=== PATIENT | male | born 1980 | race Caucasian/White ===

== ENCOUNTER 2019-07-25 08:05 | Emergency (ER) | payer SELFPAY ==
[2019-07-25] VITALS (7 sets, daily range): BP systolic 113–141; BP diastolic 79–109; PULSE 69–102; RESP 13–22; TEMP 36.4; O2SAT 93–100; BMI 19.8
--- NOTE | 2019-07-25 08:23 | CTR_ITS ---
PROCEDURE INFORMATION: Exam: CT Abdomen And Pelvis With Contrast Exam date and time: 07/25/2019 8:31 AM Age: 38 years old Clinical indication: Abdominal pain; Localized; Left lower quadrant (llq); Additional info: N/v/d; ETOH abuse TECHNIQUE: Imaging protocol: Computed tomography of the abdomen and pelvis with intravenous contrast. Radiation optimization: All CT scans at this facility use at least one of these dose optimization techniques: automated exposure control; mA and/or kV adjustment per patient size (includes targeted exams where dose is matched to clinical indication); or iterative reconstruction. Contrast material: Omnipaque 300; Contrast volume: 95 ml; Contrast route: IV; COMPARISON: No relevant prior studies available. RADIATION DOSE METRICS: Total DLP: 310.93 mGy-cm FINDINGS: Liver: Mild diffuse hypoattenuation of the liver is present consistent with hepatic steatosis. Focal hypoattenuation of the hepatic left lobe medial and lateral segments adjacent to the falciform ligament fissure, likely representing more focally severe fatty infiltration. Gallbladder and bile ducts: Normal. No calcified stones. No ductal dilation. Pancreas: Normal. No ductal dilation. Spleen: Normal. No splenomegaly. Adrenals: Normal. No mass. Kidneys and ureters: Normal. No hydronephrosis. Stomach and bowel: Unremarkable. No obstruction. No mucosal thickening. Appendix: The vermiform appendix is normal. Intraperitoneal space: Unremarkable. No free air. No significant fluid collection. Vasculature: Unremarkable. No abdominal aortic aneurysm. Lymph nodes: No enlarged lymph nodes. Bladder: The urinary bladder is decompressed and difficult to assess. Reproductive: Unremarkable as visualized. Bones/joints: Anterior bridging bilateral sacroiliac joint marginal osteophytes. Soft tissues: Unremarkable. CT/CT abdomen pelvis w con* [id number] IMPRESSION: Fatty infiltration of the liver. Radiation Dose CTDIVOL = (mGy): DLP = 310.93 (mGy-cm)
--- NOTE | 2019-07-25 08:25 | ED_ITS ---
HPI - Nausea/Vomiting/Diarrhea General: Chief complaint: Nausea/Vomiting/Diarrhea Stated complaint: N/V/ABD PAIN Time Seen by Provider: 07/25/19 08:11 History of Present Illness: HPI Narrative: Patient states he has had nausea vomiting and diarrhea since yesterday. Patient denies any fever. He does not given history of food exposure that could have caused food poisoning. Upon further questioning, patient admits that he is an alcoholic and drinks 2 pints of alcohol per day. Patient states that he throws up every morning, however he does not usually have diarrhea and the vomiting is typically not as severe as it has been since yesterday. MD elicited complaint: nausea, vomiting, diarrhea and abdominal pain Pertinent past history: alcohol abuse Onset (ago): day(s) (1) Associated nausea: Yes Associated abdominal pain: Yes Location of pain: Diffuse Exacerbating factors: none Relieving factors: none Associated symtoms: Reports nausea Review of Systems GI: Reports: nausea PFS ED PFSH: Social History Smoking and tobacco status: current every day smoker Physical Exam Const: COMMON NORMALS: patient oriented x3 and alert GENERAL APPEARANCE: cooperative, well developed, in distress, disheveled, ill appearing and appears older than stated age HENMT: COMMON NORMALS: normocephalic and atraumatic HEAD & SCALP: normal to inspection, normocephalic and atraumatic Eye: GENERAL EYE: appearance normal, both eyes and all related structures Neck/C-Spine: COMMON NORMALS: full ROM, no lymphadenopathy and no meningeal signs GENERAL: Yes normal visual inspection CERVICAL SPINE: Yes cervical ROM normal and Yes normal cervical lordosis Chest: COMMONS NORMALS: normal inspection of the chest and normal palpation of entire chest wall Resp: COMMON NORMALS: normal respiratory effort, clear to auscultation bilaterally and percussion normal AUSCULTATION: clear to auscultation bilaterally PERCUSSION: percussion normal Cardio: COMMON NORMALS: regular rate, regular rhythm, S1 normal heart sound present and S2 normal heart sound present JUGULAR VENOUS DISTENTION: no JVD PALPATION: normal PMI RATE: regular rate RHYTHM: regular rhythm HEART SOUNDS: S1 normal heart sound present and S2 normal heart sound present GI: COMMON NORMALS: Soft to palpation and No hepatosplenomegaly present INSPECTION: Yes normal to inspection PALPATION: Yes Soft to palpation and Yes No hepatosplenomegaly present PERCUSSION: normal to percussion : COMMON NORMALS: Yes no CVA tenderness BLADDER/KIDNEY EXAM: Yes no CVA tenderness Back/Pelvis: COMMON NORMALS: no CVA tenderness, thoracic and lumbar spine normal to inspection and thoraco-lumbar ROM normal Extremity: COMMON NORMALS: normal to inspection, full ROM and capillary refill normal Neuro: COMMON NORMALS: patient oriented x3 SENSORIUM/ORIENTATION: Yes alert MENINGEAL SIGNS: Yes no meningeal signs Skin: COMMON NORMALS: no rashes or lesions noted, no wounds and turgor normal GENERAL SKIN EXAM: no rashes or lesions noted, elasticity normal and turgor normal LESIONS: no lesions RASHES: no rashes TRAUMA: no lacerations or abrasions HAIR: normal NAILS: normal Course Vital Signs: Vital signs: Vital Signs Temperature 97.5 F L 07/25/19 08:09 Pulse Rate 92 07/25/19 09:29 Respiratory Rate 16 07/25/19 09:29 Blood Pressure 141/104 07/25/19 09:29 Pulse Oximetry 96 07/25/19 09:29 MDM - Nausea/Vomiting/Diarrhea Lab Data: Labs: Lab Results 07/25/19 07/25/19 07/25/19 Range/Units 08:15 08:15 08:15 WBC 10.4 H (4.0-10.0) 10^3/ uL RBC 5.39 H (4.1-5.3) 10^6/u L Hgb 17.6 H (11.7-16.6) g/dL Hct 50.7 (42.0-52.0) % MCV 94.1 H (80-94) fL MCH 32.7 (28.0-34.0) pg MCHC 34.7 (30.0-36.0) g/dL RDW 13.0 (12.1-15.1) % Plt Count 291 (130-400) 10^3/c mm MPV 9.8 (7.4-10.4) fL Neut % (Auto) 63.3 % Lymph % (Auto) 21.1 % [place] % (Auto) 14.6 % Eos % (Auto) 0.2 % Baso % (Auto) 0.5 % Neut # (Auto) 6.6 (1.8-7.7) 10^3/u L Lymph # (Auto) 2.2 (0.8-4.8) 10^3/u L [place] # (Auto) 1.5 H (0.2-0.9) 10^3/u L Eos # (Auto) 0.0 (0.0-0.8) 10^3/u L Baso # (Auto) 0.1 (0.0-0.1) 10^3/u L Nucleated RBC % (a uto) 0 % Nucleated RBCs # 0.0 /100WBC PT 11.90 (10.5-13.3) SECO NDS INR 0.85 (0.8-1.2) APTT 27.1 (23.9-36.7) SECO NDS Sodium 138 (136-145) mmol/L Potassium 3.9 (3.5-5.1) mmol/L Chloride 88 L (98-107) mmol/L Carbon Dioxide 25 (22-29) mmol/L Anion Gap 28.9 H (5-19) BUN 15 (6-20) mg/dL Creatinine 0.9 (0.7-1.2) mg/dL GFR Calculation 93.9 (90-130) mL/min Glucose 137 H (65-115) mg/dL Calculated Osmolal ity 284 L (285-295) mOsm/k g Lactate (0.5-2.2) mmol/L Calcium 11.3 H (8.5-10.5) mg/dL Phosphorus 3.4 (2.5-4.5) mg/dL Magnesium 2.1 (1.7-2.3) mg/dL Total Bilirubin 1.5 H (0.15-1.2) mg/dL AST 43 H (0-40) U/L ALT 41 (0-41) U/L Alkaline Phosphata se 84 (40-130) IU/L Total Protein 9.0 H (6.6-8.7) g/dL Albumin 5.8 H (3.5-5.2) g/dL Globulin 3.2 (1.3-4.6) g/dL Lipase 23 (13-60) U/L TSH 1.34 (0.27-4.20) uIU/ mL Salicylates < 0.3 L (3-10) mg/dL Acetaminophen < 5.0 L (10-30) ug/mL Ethyl Alcohol < 10 (0-10) mg/dL 07/25/19 Range/Units 08:15 WBC (4.0-10.0) 10^3/ uL RBC (4.1-5.3) 10^6/u L Hgb (11.7-16.6) g/dL Hct (42.0-52.0) % MCV (80-94) fL MCH (28.0-34.0) pg MCHC (30.0-36.0) g/dL RDW (12.1-15.1) % Plt Count (130-400) 10^3/c mm MPV (7.4-10.4) fL Neut % (Auto) % Lymph % (Auto) % [place] % (Auto) % Eos % (Auto) % Baso % (Auto) % Neut # (Auto) (1.8-7.7) 10^3/u L Lymph # (Auto) (0.8-4.8) 10^3/u L [place] # (Auto) (0.2-0.9) 10^3/u L Eos # (Auto) (0.0-0.8) 10^3/u L Baso # (Auto) (0.0-0.1) 10^3/u L Nucleated RBC % (a uto) % Nucleated RBCs # /100WBC PT (10.5-13.3) SECO NDS INR (0.8-1.2) APTT (23.9-36.7) SECO NDS Sodium (136-145) mmol/L Potassium (3.5-5.1) mmol/L Chloride (98-107) mmol/L Carbon Dioxide (22-29) mmol/L Anion Gap (5-19) BUN (6-20) mg/dL Creatinine (0.7-1.2) mg/dL GFR Calculation (90-130) mL/min Glucose (65-115) mg/dL Calculated Osmolal ity (285-295) mOsm/k g Lactate 2.2 (0.5-2.2) mmol/L Calcium (8.5-10.5) mg/dL Phosphorus (2.5-4.5) mg/dL Magnesium (1.7-2.3) mg/dL Total Bilirubin (0.15-1.2) mg/dL AST (0-40) U/L ALT (0-41) U/L Alkaline Phosphata se (40-130) IU/L Total Protein (6.6-8.7) g/dL Albumin (3.5-5.2) g/dL Globulin (1.3-4.6) g/dL Lipase (13-60) U/L TSH (0.27-4.20) uIU/ mL Salicylates (3-10) mg/dL Acetaminophen (10-30) ug/mL Ethyl Alcohol (0-10) mg/dL Discharge Plan Discharge Patient Disposition: Home, Self-Care Clinical Impression: Gastroenteritis, Alcohol abuse Chronic alcoholic gastritis Qualifiers: Gastritis bleeding: without bleeding Qualified Code(s): K29.20 - Alcoholic gastritis without bleeding Condition: Stable Prescriptions: New ondansetron 4 mg tablet,disintegrating 4 mg PO Q6H PRN (Reason: nausea and vomiting) Qty: 10 RF: 1 dicyclomine 10 mg capsule 10 mg PO QID Qty: 20 RF: 0 Discharge Orders: Discharge Order (Routine); Ordered 07/25/19 Ordered By: Nabil Vaughn Coding Level of Care Code ED Linotypist for Chg Fwd Exam Comprehensive
[2019-07-25] MEDS: ondansetron 2 mg/ML SDV 2 mL 4 MG IVP (08:28)
--- NOTE | 2019-07-25 08:33 | PC.NURSE ---
At patients bedside to administer zofran and obtain second blood culture. Zofran administered. Second blood culture obtained via venipuncture of the right AC. Patient also reports the physician stated he was able to have ice chips. Ice chips obtained and given to the patient. Patient has no other needs at this time. Will continue to monitor patient.
[2019-07-25 08:40] LABS: Basophils # 0.1 10^3/uL (0.0-0.1); Basophils % 0.5 %; Eosinophils % 0.2 %; Hematocrit 50.7 % (42.0-52.0); Hemoglobin 17.6 g/dL (11.7-16.6); Lymphocytes # 2.2 10^3/uL (0.8-4.8); Lymphocytes % 21.1 %; Mean Corpuscular HGB Conc 34.7 g/dL (30.0-36.0); Mean Corpuscular Hemoglobin 32.7 pg (28.0-34.0); Mean Corpuscular Volume 94.1 fL (80-94); Mean Platelet Volume 9.8 fL (7.4-10.4); Monocytes # 1.5 10^3/uL (0.2-0.9); Monocytes % 14.6 %; Neutrophils # 6.6 10^3/uL (1.8-7.7); Neutrophils % 63.3 %; Nucleated Red Blood Cells % 0 %; Platelet Count 291 10^3/cmm (130-400); Red Blood Count 5.39 10^6/uL (4.1-5.3); White Blood Count 10.4 10^3/uL (4.0-10.0)
[2019-07-25 08:44] LABS: INR 0.85 (0.8-1.2)
[2019-07-25 08:45] LABS: Partial Thromboplastin Time 27.1 SECONDS (23.9-36.7)
[2019-07-25] MEDS: folic acid 1 MG, multivitamin inj 10 ML, thiamine 100 MG in sodium chloride 0.9% 1,000 ML 252.8 MG IV (08:50)
[2019-07-25 08:54] LABS: Lactate (Lactic Acid level) 2.2 mmol/L (0.5-2.2)
[2019-07-25] MEDS: sodium chloride 0.9% 1,000 ML 999 ML IV (08:55)
[2019-07-25 09:00] LABS: Alanine Aminotransferase 41 U/L (0-41); Albumin Level 5.8 g/dL (3.5-5.2); Alkaline Phosphatase 84 IU/L (40-130); Anion Gap 28.9 (5-19); Aspartate Amino Transferase 43 U/L (0-40); Blood Urea Nitrogen 15 mg/dL (6-20); Calcium 11.3 mg/dL (8.5-10.5); Carbon Dioxide 25 mmol/L (22-29); Chloride 88 mmol/L (98-107); Globulin 3.2 g/dL (1.3-4.6); Glomerular Filtration Rate 93.9 mL/min (90-130); Glucose 137 mg/dL (65-115); Lipase 23 U/L (13-60); Magnesium 2.1 mg/dL (1.7-2.3); Osmolality Calculated 284 mOsm/kg (285-295); Phosphorus 3.4 mg/dL (2.5-4.5); Potassium 3.9 mmol/L (3.5-5.1); Sodium 138 mmol/L (136-145); Thyroid Stimulating Hormone 1.34 uIU/mL (0.27-4.20); Total Bilirubin 1.5 mg/dL (0.15-1.2)
--- NOTE | 2019-07-25 09:05 | PC.NURSE ---
Patient with EMS heading to [facility] for CT. Fluids stopped at this time.
[2019-07-25] MEDS: iohexol 300 mg/mL 100 mL Btl IV (09:23)
--- NOTE | 2019-07-25 09:25 | PC.NURSE ---
Patient returning from the [facility] from CT.
[2019-07-25 09:37] LABS: Acetaminophen < 5.0 ug/mL (10-30); Alcohol Level < 10 mg/dL (0-10); Salicylate < 0.3 mg/dL (3-10)
[2019-07-25 11:20] LABS: Amphetamines Screen Urine Negative (Negative); Barbiturates Screen Urine Negative (Negative); Benzodiazepines Screen Urine Negative (Negative); Cocaine Screen Urine Negative (Negative); Opiate Screen Urine Negative (Negative); PCP Screen Urine Negative (Negative); THC Screen Urine Positive (Negative)
[2019-07-25 11:27] LABS: Blood Urine Neg (Negative); Glucose Urine UA Norm (Normal); Ketones Urine 3+ (Negative); Nitrate Urine Negative (Negative); Protein Urine 1+ (Negative); Urine Appearance Clear (CLEAR); Urine Color Yellow (Yellow); pH Urine 7 (5-7)
[2019-07-25 11:28] LABS: Add Urine Culture? No; Add Urine Microscopic? YES; Bacteria Urine TRACE; Bilirubin Urine 1+ (NEGATIVE); Leukocyte Esterase Urine Negative (Negative); Mucus Urine 1+; Urobilinogen Urine 4 mg/dL (Negative); WBC Urine 0-4 /hpf (0-5)
== END 2019-07-25 10:26 | disposition home or self-care (01) ==
PROVIDERS: Emergency Provider Family Medicine
DX: K29.20 Alcoholic gastritis without bleeding (principal); F10.10 Alcohol abuse, uncomplicated; K52.9 Noninfective gastroenteritis and colitis, unspecified; F17.210 Nicotine dependence, cigarettes, uncomplicated
CPT/HCPCS: 12345; 74177; 80053; 80306; 80307; 81001; 83605; 83690; 83735; 84100; 84443; 85025; 85610; 85730; 87040; 96360; 96365; 96366; 96375; 99284; J2405; J3411; J3490; J7030; Q9967

== ENCOUNTER 2019-08-25 14:00 | Inpatient (IN) | payer SELFPAY ==
[2019-08-25] VITALS (49 sets, daily range): BP systolic 99–157; BP diastolic 68–101; PULSE 86–130; RESP 13–26; TEMP 36.9–37.2; O2SAT 88–97
--- NOTE | 2019-08-25 14:11 | ED_ITS ---
HPI - Psych General: Chief Complaint: Psychiatric Symptoms Stated Complaint: stated needs help Time Seen by Provider: 08/25/19 14:07 Source: patient History of Present Illness: HPI Narrative: 38-year-old male brought in at his request by his mother who lives next door to him because he wants help to get sober. He ultimately wants to go to rehab. He states he drinks a gallon of vodka a day and cannot tell me the last time he did not drink. Last alcoholic drink was just prior to arrival. He states he has been depressed for the last 10 days since his left him he was sitting [place] the railroad [place] earlier today because he feels despondent and hopeless. Did not take any recreational drugs or overdose on anything. He tells me I know I am an alcoholic and I need your help Associated symptoms: Reports depression and suicidal ideation Review of Systems General: Reports: 10 or more systems reviewed and unremarkable except in HPI and below Const: Denies: fever(s) or chills Eyes: Denies: change in vision ENMT: Denies: throat pain Card: Denies: chest pain Resp: Denies: dyspnea GI: Denies: abdominal pain, nausea, vomiting or change in bowel habits : Denies: difficulty urinating Musc: Denies: muscle weakness Skin/Breast: Denies: rash Neuro: Denies: headache(s) Psych: Reports: depression, hopelessness and suicidal ideation Endo: Denies: polyuria Stanley/Lymph: Denies: easy bruising or easy bleeding All/Imm: Denies: urticaria PFSH ED PFSH: Medical History (Updated 08/25/19 @ 19:56 by Pippa Romero MD) Alcohol abuse Cigarette smoker two packs a day or less Cyst of eyelid -s/p excision in childhood Tetrahydrocannabinol (THC) use disorder, mild, abuse Family History Father Cancer prostate Alcohol abuse Social History (Updated 08/25/19 @ 19:10 by Dyan Barnett MD) Smoking and tobacco status: current every day smoker cigarettes Packs smoked per day: 2 Years cigarettes smoked: 25 Alcohol intake: current Alcohol intake frequency: 3 or more drinks per day Alcohol type: hard liquor Alcohol use comment: heavy vodka use, 1 gallon/day Desire information about alcohol rehabilitation?: Yes Counseling given: Yes Type of substance drug use counseling provided: provider counseling Household members: spouse Marital status: Physical Exam Const: COMMON NORMALS: patient oriented x3, alert and well nourished OTHER: smells of etoh HENMT: COMMON NORMALS: normocephalic and Normal external nose present HEAD & SCALP: normocephalic NOSE: Normal external nose present MOUTH: no trismus Eye: COMMON NORMALS: EOMs intact bilaterally and conjunctivae normal CONJUNCTIVA: Yes conjunctivae normal Neck/C-Spine: COMMON NORMALS: full ROM, no lymphadenopathy and supple CERVICAL SPINE: Yes cervical ROM normal Lymph: LYMPHATIC: no lymphadenopathy noted Resp: COMMON NORMALS: normal respiratory effort, No retractions, No use of accessory muscles and clear to auscultation bilaterally EFFORT & INSPECTION: Yes able to speak in complete sentences AUSCULTATION: clear to auscultation bilaterally Cardio: COMMON NORMALS: regular rate and regular rhythm RATE: regular rate RHYTHM: regular rhythm GI: COMMON NORMALS: Normal to inspection, nondistended, normoactive bowel sounds present, Soft to palpation, non-tender and no masses INSPECTION: Yes normal to inspection AUSCULTATION: Yes normoactive bowel sounds PALPATION: Yes Soft to palpation, No Guarding due to palpation present (GI) and No Rigid due to palpation Back/Pelvis: OTHER: Normal range of motion Extremity: GENERAL: Yes normal exam except as noted Neuro: COMMON NORMALS: patient oriented x3 and CN's II-XII intact bilaterally SENSORIUM/ORIENTATION: Yes alert SPEECH: speech normal Psych: COMMON NORMALS: mental status grossly normal MOOD & AFFECT: Yes tearful and Yes expansive affect ATTENTION/CONCENTRATION: Yes concentration grossly impaired INSIGHT: Limited insight present (Psych) Skin: COMMON NORMALS: no rashes or lesions noted GENERAL SKIN EXAM: no rashes or lesions noted MDM - Psych MDM Narrative: Medical decision making narrative: 38 yo male with chronic alcohol abuse here wanting help to stop drinking and ultimately wants to go to rehab. drinks a gallon of vodka daily. Has never had DT's. depressed and hopeless since left him 10 days ago. d/w Dr Barnett will admit to ICU. Given IVF, ativan, MVI, thiamine and nicotine patch in ER no problems while in ED. * Lab Data: Attestation: I reviewed the patient's lab results. Labs: Lab Results 08/25/19 08/25/19 08/25/19 Range/Units 14:23 14:23 14:26 WBC 10.5 H (4.0-10.0) 10^3/ uL RBC 5.08 (4.1-5.3) 10^6/u L Hgb 16.6 (11.7-16.6) g/dL Hct 47.6 (42.0-52.0) % MCV 93.7 (80-94) fL MCH 32.7 (28.0-34.0) pg MCHC 34.9 (30.0-36.0) g/dL RDW 12.2 (12.1-15.1) % Plt Count 214 (130-400) 10^3/c mm MPV 9.8 (7.4-10.4) fL Neut % (Auto) 56.5 % Lymph % (Auto) 30.9 % [place] % (Auto) 10.1 % Eos % (Auto) 1.4 % Baso % (Auto) 0.9 % Neut # (Auto) 5.92 (1.8-7.7) 10^3/u L Lymph # (Auto) 3.2 (0.8-4.8) 10^3/u L [place] # (Auto) 1.1 H (0.2-0.9) 10^3/u L Eos # (Auto) 0.2 (0.0-0.8) 10^3/u L Baso # (Auto) 0.1 (0.0-0.1) 10^3/u L Nucleated RBC % (a uto) 0 % Nucleated RBCs # 0.0 /100WBC Sodium (136-145) mmol/L Potassium (3.5-5.1) mmol/L Chloride (98-107) mmol/L Carbon Dioxide (22-29) mmol/L Anion Gap (5-19) BUN (6-20) mg/dL Creatinine (0.7-1.2) mg/dL GFR Calculation (90-130) mL/min Glucose (65-115) mg/dL Calculated Osmolal ity (285-295) mOsm/k g Calcium (8.5-10.5) mg/dL Total Bilirubin (0.15-1.2) mg/dL AST (0-40) U/L ALT (0-41) U/L Alkaline Phosphata se (40-130) IU/L Total Protein (6.6-8.7) g/dL Albumin (3.5-5.2) g/dL Globulin (1.3-4.6) g/dL TSH (0.27-4.20) uIU/ mL Urine Color Yellow (Yellow) Urine Appearance Clear (CLEAR) Urine pH 6 (5-7) Ur Specific Gravit y 1.010 (1.005-1.030) Urine Protein Trace (Negative) Urine Glucose (UA) Norm (Normal) Urine Ketones 1+ H (Negative) Urine Blood Neg (Negative) Urine Nitrate Negative (Negative) Urine Bilirubin Neg (NEGATIVE) Urine Urobilinogen 1 H (Negative) mg/dL Ur Leukocyte [place] Negative (Negative) Urine RBC 0-4 H (0-2) /hpf Urine WBC None (0-5) /hpf Ur Squamous Epith Cells None (0-5) Ur Transition Epit h Cell None /hpf Ur Renal Epithelia l Cell N /hpf Amorphous Sediment Not Reportable Urine Bacteria Trace (NONE) Hyaline Casts 0-4 H Urine Mucus 4+ Salicylates (3-10) mg/dL Urine Opiates Scre en Negative (Negative) ng/mL Acetaminophen (10-30) ug/mL Ur Barbiturates Sc reen Negative (Negative) ng/mL Ur Phencyclidine S crn Negative (Negative) ng/mL Ur Amphetamines Sc reen Negative (Negative) ng/mL U Benzodiazepines Scrn Negative (Negative) ng/mL Urine Cocaine Scre en Negative (Negative) ng/mL U Marijuana (THC) Screen Positive H (Negative) ng/mL Ethyl Alcohol (0-10) mg/dL 08/25/19 Range/Units 14:26 WBC (4.0-10.0) 10^3/ uL RBC (4.1-5.3) 10^6/u L Hgb (11.7-16.6) g/dL Hct (42.0-52.0) % MCV (80-94) fL MCH (28.0-34.0) pg MCHC (30.0-36.0) g/dL RDW (12.1-15.1) % Plt Count (130-400) 10^3/c mm MPV (7.4-10.4) fL Neut % (Auto) % Lymph % (Auto) % [place] % (Auto) % Eos % (Auto) % Baso % (Auto) % Neut # (Auto) (1.8-7.7) 10^3/u L Lymph # (Auto) (0.8-4.8) 10^3/u L [place] # (Auto) (0.2-0.9) 10^3/u L Eos # (Auto) (0.0-0.8) 10^3/u L Baso # (Auto) (0.0-0.1) 10^3/u L Nucleated RBC % (a uto) % Nucleated RBCs # /100WBC Sodium 134 L (136-145) mmol/L Potassium 3.7 (3.5-5.1) mmol/L Chloride 95 L (98-107) mmol/L Carbon Dioxide 21 L (22-29) mmol/L Anion Gap 21.7 H (5-19) BUN 7 (6-20) mg/dL Creatinine 0.7 (0.7-1.2) mg/dL GFR Calculation 125.5 (90-130) mL/min Glucose 113 (65-115) mg/dL Calculated Osmolal ity 275 L (285-295) mOsm/k g Calcium 9.5 (8.5-10.5) mg/dL Total Bilirubin 0.5 (0.15-1.2) mg/dL AST 240 H (0-40) U/L ALT 267 H (0-41) U/L Alkaline Phosphata se 76 (40-130) IU/L Total Protein 8.2 (6.6-8.7) g/dL Albumin 5.5 H (3.5-5.2) g/dL Globulin 2.7 (1.3-4.6) g/dL TSH 0.21 L (0.27-4.20) uIU/ mL Urine Color (Yellow) Urine Appearance (CLEAR) Urine pH (5-7) Ur Specific Gravit y (1.005-1.030) Urine Protein (Negative) Urine Glucose (UA) (Normal) Urine Ketones (Negative) Urine Blood (Negative) Urine Nitrate (Negative) Urine Bilirubin (NEGATIVE) Urine Urobilinogen (Negative) mg/dL Ur Leukocyte [place] (Negative) Urine RBC (0-2) /hpf Urine WBC (0-5) /hpf Ur Squamous Epith Cells (0-5) Ur Transition Epit h Cell /hpf Ur Renal Epithelia l Cell /hpf Amorphous Sediment Urine Bacteria (NONE) Hyaline Casts Urine Mucus Salicylates < 0.3 L (3-10) mg/dL Urine Opiates Scre en (Negative) ng/mL Acetaminophen < 5.0 L (10-30) ug/mL Ur Barbiturates Sc reen (Negative) ng/mL Ur Phencyclidine S crn (Negative) ng/mL Ur Amphetamines Sc reen (Negative) ng/mL U Benzodiazepines Scrn (Negative) ng/mL Urine Cocaine Scre en (Negative) ng/mL U Marijuana (THC) Screen (Negative) ng/mL Ethyl Alcohol 384 H* (0-10) mg/dL Imaging Data^: CT Head: Radiologist's impression: [address] [facility] [address] CT Scan Report Signed Patient: Luis Andrew #: [id number] : 1980Acct#:[id number] Age/Sex: 38 / MADM Date: 08/25/19 Loc: ERRoom/Bed: Attending Dr: Ordering Provider/Ordering MD: Pippa Romero MD Date of Service: 08/25/19 Procedure(s): CT head wo con* [id number] Accession Number(s): [id number] Report Number: [id number] PROCEDURE INFORMATION: Exam: CT Head Without Contrast Exam date and time: 08/25/2019 3:48 PM Age: 38 years old Clinical indication: Injury or trauma; Fall; Additional info: Fall, ETOH TECHNIQUE: Imaging protocol: Computed tomography of the head without contrast. Radiation optimization: All CT scans at this facility use at least one of these dose optimization techniques: automated exposure control; mA and/or kV adjustment per patient size (includes targeted exams where dose is matched to clinical indication); or iterative reconstruction. COMPARISON: No relevant prior studies available. RADIATION DOSE METRICS: Total DLP (mGy-cm): 838.69 FINDINGS: Brain: There is an old infarct in the left frontal white matter. No evidence of acute infarct. No hemorrhage or extra-axial collection. No mass. Ventricles: There is no hydrocephalus. Bones/joints: Unremarkable. No acute fracture. Sinuses: Visualized sinuses are unremarkable. No fluid levels. Mastoid air cells: Visualized mastoid air cells are well aerated. Soft tissues: Unremarkable. CT/CT head wo con* [id number] IMPRESSION: 1. 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 2. No acute intracranial injury or lesion. Radiation Dose CTDIVOL = (mGy): DLP = 838.69 (mGy-cm) Dictated By:Ham Puga MD Discharge Plan Discharge Patient Disposition: Admitted As Inpatient Admit Provider: Dyan Barnett Clinical Impression: Alcohol abuse, Suicidal ideation Condition: Stable Interventions: ED Discharge Assessment Last Done: 08/25/19 19:12 ED Charges Last Done: 08/25/19 19:13 Coding Level of Care Code ED Unemployment Insurance Hearing Officer for Chg Fwd Exam Comprehensive
[2019-08-25 14:37] LABS: Basophils # 0.1 10^3/uL (0.0-0.1); Basophils % 0.9 %; Eosinophils # 0.2 10^3/uL (0.0-0.8); Eosinophils % 1.4 %; Hematocrit 47.6 % (42.0-52.0); Hemoglobin 16.6 g/dL (11.7-16.6); Lymphocytes # 3.2 10^3/uL (0.8-4.8); Lymphocytes % 30.9 %; Mean Corpuscular HGB Conc 34.9 g/dL (30.0-36.0); Mean Corpuscular Hemoglobin 32.7 pg (28.0-34.0); Mean Corpuscular Volume 93.7 fL (80-94); Mean Platelet Volume 9.8 fL (7.4-10.4); Monocytes # 1.1 10^3/uL (0.2-0.9); Monocytes % 10.1 %; Neutrophils # 5.92 10^3/uL (1.8-7.7); Neutrophils % 56.5 %; Nucleated Red Blood Cells % 0 %; Platelet Count 214 10^3/cmm (130-400); Red Blood Count 5.08 10^6/uL (4.1-5.3); Red Cell Distribution Width 12.2 % (12.1-15.1); White Blood Count 10.5 10^3/uL (4.0-10.0)
[2019-08-25 15:01] LABS: Alanine Aminotransferase 267 U/L (0-41); Albumin Level 5.5 g/dL (3.5-5.2); Alkaline Phosphatase 76 IU/L (40-130); Anion Gap 21.7 (5-19); Aspartate Amino Transferase 240 U/L (0-40); Blood Urea Nitrogen 7 mg/dL (6-20); Calcium 9.5 mg/dL (8.5-10.5); Carbon Dioxide 21 mmol/L (22-29); Chloride 95 mmol/L (98-107); Globulin 2.7 g/dL (1.3-4.6); Glomerular Filtration Rate 125.5 mL/min (90-130); Glucose 113 mg/dL (65-115); Osmolality Calculated 275 mOsm/kg (285-295); Potassium 3.7 mmol/L (3.5-5.1); Sodium 134 mmol/L (136-145); Thyroid Stimulating Hormone 0.21 uIU/mL (0.27-4.20); Total Bilirubin 0.5 mg/dL (0.15-1.2); Total Protein 8.2 g/dL (6.6-8.7)
[2019-08-25 15:04] LABS: Acetaminophen < 5.0 ug/mL (10-30); Salicylate < 0.3 mg/dL (3-10)
[2019-08-25 15:05] LABS: Alcohol Level 384 mg/dL (0-10)
[2019-08-25] MEDS: LORazepam 1 mg Tablet PO (15:18)
[2019-08-25] MEDS: sodium chloride 0.9% 1,000 ML 999 ML IV (15:18)
[2019-08-25] MEDS: multivitamin therapeutic Tablet 1 TAB PO (15:18)
[2019-08-25 15:19] LABS: Protein Urine Trace (Negative); Urine Appearance Clear (CLEAR); Urine Color Yellow (Yellow); pH Urine 6 (5-7)
[2019-08-25 15:20] LABS: Add Urine Microscopic? YES; Bilirubin Urine Neg (NEGATIVE); Blood Urine Neg (Negative); Glucose Urine UA Norm (Normal); Ketones Urine 1+ (Negative); Leukocyte Esterase Urine Negative (Negative); Nitrate Urine Negative (Negative); Urobilinogen Urine 1 mg/dL (Negative)
[2019-08-25 15:22] LABS: Add Urine Culture? No; Bacteria Urine TRACE; Hyaline Casts Urine 0-4; Mucus Urine 4+; RBC Urine 0-4 /hpf (0-2); Renal Epithelial Cells Urine N /hpf
[2019-08-25] MEDS: nicotine 21 mg Patch 1 PATCH TRANSDERMA (15:22)
--- NOTE | 2019-08-25 15:39 | CTR_ITS ---
PROCEDURE INFORMATION: Exam: CT Head Without Contrast Exam date and time: 08/25/2019 3:48 PM Age: 38 years old Clinical indication: Injury or trauma; Fall; Additional info: Fall, ETOH TECHNIQUE: Imaging protocol: Computed tomography of the head without contrast. Radiation optimization: All CT scans at this facility use at least one of these dose optimization techniques: automated exposure control; mA and/or kV adjustment per patient size (includes targeted exams where dose is matched to clinical indication); or iterative reconstruction. COMPARISON: No relevant prior studies available. RADIATION DOSE METRICS: Total DLP (mGy-cm): 838.69 FINDINGS: Brain: There is an old infarct in the left frontal white matter. No evidence of acute infarct. No hemorrhage or extra-axial collection. No mass. Ventricles: There is no hydrocephalus. Bones/joints: Unremarkable. No acute fracture. Sinuses: Visualized sinuses are unremarkable. No fluid levels. Mastoid air cells: Visualized mastoid air cells are well aerated. Soft tissues: Unremarkable. CT/CT head wo con* [id number] IMPRESSION: 1. 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 2. No acute intracranial injury or lesion. Radiation Dose CTDIVOL = (mGy): DLP = 838.69 (mGy-cm)
[2019-08-25 15:49] LABS: Amphetamines Screen Urine Negative (Negative); Barbiturates Screen Urine Negative (Negative); Benzodiazepines Screen Urine Negative (Negative); Cocaine Screen Urine Negative (Negative); Opiate Screen Urine Negative (Negative); PCP Screen Urine Negative (Negative); THC Screen Urine Positive (Negative)
[2019-08-25] MEDS: LORazepam 2 mg/mL INJ 1 mL 1 MG IVP (16:47)
--- NOTE | 2019-08-25 17:39 | PC.NURSE ---
Called and informed pt mother of his room and his condition. Informed pt that his mother was informed
--- NOTE | 2019-08-25 17:52 | PC.NURSE ---
Has given 2 sandwiches along with apple sauce
--- NOTE | 2019-08-25 19:00 | P.HP_ITS ---
Providers/Chief Complaint Admitting Physician: Dyan Barnett MD Primary Care Provider: None Chief Complaint: stated needs help History of Present Illness Luis Andrew is a 38 year old male with PMHx of EtOH abuse, THC use, Chronic smoker; presents from home for assistance with detoxing from alcohol. He admits to drinking a gallon of vodka a day and is acutely intoxicated during my assessment in the ER. He has been quite emotional, stressed and anxious as he has not been able to being in contact with his for about 7 to 10 days and has been trying to drink himself to due to the stress. He reports poor sleep, often having vivid nightmares about his and his stepfather who is . He has had a long history of alcohol abuse, admits to intermittent THC use as well but denies other illicit drug use. He and his have been living in a camper but he has not had any contact with her recently and is unsure why he cannot get a hold of her. He has reported her disappearance to the police but her whereabouts remain unknown. He smokes 2 packs/day. He reported suicidal ideation on initial assessment in the ER but is currently denying this at this time. Sitter is present at bedside. Work-up in the ER indicates some leukocytosis with a white count of 10.5, hemoglobin of 16.6, sodium of 134, normal renal function, blood sugar of 113, AST of 240, ALT of 267, alcohol level of 384, urine drug screen positive for THC. While attempting to reposition on the stretcher he felt dizzy and ended up falling face forward after which she had a CT head done which is unremarkable. He has received 2 doses of Ativan, IV fluid hydration, thiamine and multivitamins and has a nicotine patch in place. He is very high risk for withdrawal given his acute in toxication, daily alcohol use and alcohol level of 384 so will require close monitoring in ICU setting. We will continue to need one-on-one monitoring due to suicide risk. Vital signs so far have been stable. Review of Systems Const: Reports: change in appetite (decreased appetite), fatigue and malaise; Denies: fever(s) or chills Eyes: Denies: change in vision ENMT: Reports: dry mouth Card: Denies: chest pain, swelling of feet/ankles or lightheadedness Resp: Denies: dyspnea, productive cough or non-productive cough GI: Denies: abdominal pain, nausea, vomiting, hematemesis or hematochezia : Reports: urinary frequency; Denies: dysuria or hematuria Musc: Denies: back pain Skin/Breast: Denies: rash Neuro: Reports: weakness in extremities; Denies: numbness in extremities Psych: Denies: anxiety Medications/Allergies Home Medications Medication Instructions Recorded Confirmed Last Taken Type ondansetron 4 mg PO Q6H PRN #10 tab 07/25/19 08/25/19 Unknown Rx Allergies Allergy/AdvReac Type Severity Reaction Status Date / Time No Known Allergies Allergy Verified 07/25/19 08:09 PFSH Acute PFSH: Medical History Alcohol abuse Cyst of eyelid -s/p excision in childhood Family History Father Cancer prostate Alcohol abuse Social History (Updated 08/25/19 @ 19:10 by Dyan Barnett MD) Smoking and tobacco status: current every day smoker cigarettes Packs smoked per day: 2 Years cigarettes smoked: 25 Alcohol intake: current Alcohol intake frequency: 3 or more drinks per day Alcohol type: hard liquor Alcohol use comment: heavy vodka use, 1 gallon/day Desire information about alcohol rehabilitation?: Yes Counseling given: Yes Type of substance drug use counseling provided: provider counseling Household members: spouse Marital status: Vitals/I&O/Wt Last Vital Signs Temp 98.6 F 08/25/19 14:01 Pulse 101 H 08/25/19 16:00 Resp 18 08/25/19 16:00 BP 110/68 08/25/19 16:00 Pulse Ox 97 08/25/19 16:00 Weight last 48 hrs Weight 68.039 kg Physical Exam Const: COMMON NORMALS: no acute distress, patient oriented x3 and alert GENERAL APPEARANCE: cooperative, comfortable and odor of alcohol detected ORIENTATION/CONSCIOUSNESS: Yes awake HENMT: COMMON NORMALS: normocephalic, atraumatic, hearing grossly normal bilaterally and moist oral mucous membranes HEAD & SCALP: normocephalic and atraumatic MOUTH: moist mucous membranes abnormal Details: parched and malodorous breath Eye: COMMON NORMALS: Equal, round and reactive pupils present, EOMs intact bilaterally and conjunctivae normal CONJUNCTIVA: Yes conjunctivae normal PUPIL: Yes Equal, round and reactive pupils present Neck/C-Spine: COMMON NORMALS: full ROM GENERAL: Yes normal visual inspection and Yes trachea midline Resp: COMMON NORMALS: normal respiratory effort, No retractions, No use of accessory muscles and clear to auscultation bilaterally EFFORT & INSPECTION: Yes able to speak in complete sentences, Yes symmetric chest movement and No tac hypneic AUSCULTATION: clear to auscultation bilaterally Cardio: COMMON NORMALS: regular rate, regular rhythm, S1 normal heart sound present, S2 normal heart sound present and No murmurs present (Cardio) RATE: regular rate RHYTHM: regular rhythm HEART SOUNDS: S1 normal heart sound present and S2 normal heart sound present GI: COMMON NORMALS: Normal to inspection, nondistended, normoactive bowel sounds present, Soft to palpation and non-tender PALPATION: Yes Soft to palpation Extremity: COMMON NORMALS: normal to inspection, full ROM and no clubbing, cyanosis or edema; negative for no pedal edema Neuro: COMMON NORMALS: patient oriented x3, moves all extremities, no focal motor deficits, no sensory deficits noted and gait normal Psych: COMMON NORMALS: mental status grossly normal, Normal thought process present, cooperative, normal affect and speech normal SPEECH: Yes normal speech THOUGHT PROCESS: Normal thought process present Skin: COMMON NORMALS: no rashes or lesions noted, no jaundice, no petechiae and no mottling GENERAL SKIN EXAM: no rashes or lesions noted Data : 08/25/19 14:26 08/25/19 14:26 A&P Assessment and plan (1) Alcohol abuse: -acute alcohol intoxication with EtOH level of 384 -heavy vodka drinker; 1 gallon/day -high risk for severe withdrawal -CIWA protocol; MVI, thiamine, folic acid daily -hold Librium due to transaminitis -close monitoring of vital signs; noted some hypertension and tachycardia in EC -trend LFTs -fall/seizure/aspiration precautions -IVF hydration Status: Chronic (2) Transaminitis: -likely secondary to alcohol abuse -trend LFTs -had recent CT A/P showing fatty liver infiltration Status: Acute (3) Cigarette smoker two packs a day or less: -chronic heavy smoker, 2 PPD -nicotine replacement therapy Status: Chronic (4) Tetrahydrocannabinol (THC) use disorder, mild, abuse: Status: Chronic (5) Suicidal ideation: -currently denying SI -sitter at bedside -will likely need Psych evaluation once medically stable Status: Acute Additional A&P Information -regular diet as tolerated -GI ppx with PPI -DVT ppx with Lovenox -Dispo: home -Code status: FULL code -ICU admission due to high risk for severe alcohol withdrawal Attestations Medical Necessity Statement*: Luis Andrew's hospital stay will require greater than 2 midnights for management of acute alcohol intoxication with high risk for severe withdrawal. Time Spent in Patient Care: Greater than 35 minutes (>than 50% of time spent in counselling and/or direct pt care on unit) . Coding Level of Care Code Acute Lens Inserter for Arthur De Leond Diagnoses Alcohol abuse F10.10 Transaminitis R74.0 Cigarette smoker two packs a day or less F17.210 Tetrahydrocannabinol (THC) use disorder, mild, abuse F12.10 Suicidal ideation R45.853
[2019-08-25] MEDS: sodium chlor 0.9% + KCl 20 mEq 20 MEQ/1,000 ML BAG 100 MEQ IV (20:45)
[2019-08-25] MEDS: enoxaparin 40 mg/0.4 mL Syringe SUBCUT (20:45)
[2019-08-25] MEDS: LORazepam 2 mg/mL INJ 1 mL IVP (20:45)
[2019-08-25] MEDS: acetaminophen 325 mg Tablet 650 MG PO (21:50)
--- NOTE | 2019-08-25 22:44 | PC.NURSE ---
patient belongings belongings brought from ER. patient has a blue [employer] bag that has a hat, extra clothing, cell phone, hot car charger, fabrication inspector, cigarettes, and sunglasses. patient belongings labeled with hospital stickers and placed in dictation room. patient currently sleeping. non-labored breathing. vitals WNL. 1:1 sitter at bedside. will continue to monitor.
[2019-08-26] VITALS (85 sets, daily range): BP systolic 115–150; BP diastolic 78–99; PULSE 82–113; RESP 12–23; TEMP 36.4–37; O2SAT 89–97
[2019-08-26 04:46] LABS: Basophils # 0.1 10^3/uL (0.0-0.1); Eosinophils # 0.2 10^3/uL (0.0-0.8); Eosinophils % 3.1 %; Hematocrit 39.9 % (42.0-52.0); Hemoglobin 13.9 g/dL (11.7-16.6); Lymphocytes % 39.4 %; Mean Corpuscular HGB Conc 34.8 g/dL (30.0-36.0); Mean Corpuscular Hemoglobin 33.3 pg (28.0-34.0); Mean Corpuscular Volume 95.5 fL (80-94); Mean Platelet Volume 10.1 fL (7.4-10.4); Monocytes # 0.8 10^3/uL (0.2-0.9); Monocytes % 14.8 %; Neutrophils # 2.11 10^3/uL (1.8-7.7); Neutrophils % 41.5 %; Nucleated Red Blood Cells % 0 %; Platelet Count 167 10^3/cmm (130-400); Red Blood Count 4.18 10^6/uL (4.1-5.3); Red Cell Distribution Width 12.4 % (12.1-15.1); White Blood Count 5.1 10^3/uL (4.0-10.0)
[2019-08-26 05:10] LABS: Alanine Aminotransferase 196 U/L (0-41); Albumin Level 4.2 g/dL (3.5-5.2); Alkaline Phosphatase 57 IU/L (40-130); Aspartate Amino Transferase 137 U/L (0-40); Blood Urea Nitrogen 7 mg/dL (6-20); Calcium 8.7 mg/dL (8.5-10.5); Carbon Dioxide 22 mmol/L (22-29); Chloride 104 mmol/L (98-107); Globulin 2.5 g/dL (1.3-4.6); Glucose 95 mg/dL (65-115); Osmolality Calculated 284 mOsm/kg (285-295); Sodium 139 mmol/L (136-145); Total Bilirubin 0.8 mg/dL (0.15-1.2); Total Protein 6.7 g/dL (6.6-8.7)
[2019-08-26 05:25] LABS: Anion Gap 17.3 (5-19); Potassium 4.3 mmol/L (3.5-5.1)
[2019-08-26] MEDS: LORazepam 2 mg/mL INJ 1 mL IVP (05:57)
[2019-08-26] MEDS: sodium chlor 0.9% + KCl 20 mEq 20 MEQ/1,000 ML BAG 100 MEQ IV ×2 (06:26→15:45)
[2019-08-26] MEDS: multivitamin therapeutic Tablet 1 TAB PO (08:07)
[2019-08-26] MEDS: pantoprazole DR 40 mg Tablet PO (08:07)
[2019-08-26] MEDS: nicotine 21 mg Patch 1 PATCH TRANSDERMA (08:07)
[2019-08-26] MEDS: thiamine 100 mg Tablet PO (08:07)
[2019-08-26] MEDS: folic acid 1 mg Tablet PO (08:07)
--- NOTE | 2019-08-26 08:43 | PC.NURSE ---
AO x4, speech clear, not UNALAKLEET, gips strong and equal BUE, follows commands, ambulates with standby assist, gait is slightly unsteady, slight expiratory wheeze to bilateral lobes upper lobes clear, regular unlabored RR RA denied SOB O2 sat 94, abd soft non tender, pedal and radial pulses WNL cap refill <3 to all extremities. supine 30 degrees call light within reach
--- NOTE | 2019-08-26 09:31 | PM.PN ---
Subjective Subjective: Interval history: Hemodynamically stable, afebrile, required 2 doses of Ativan overnight, labs reviewed, LFTs tending down. Initially seen earlier this morning, resting comfortably in bed. Throughout the day has not required any further Ativan. Discussed case with Dr. Knowles and patient will not require inpatient psychiatric care. Patient has been able to get in touch with his and is eager to go home this afternoon. He has done well throughout the day, will discontinue one-on-one sitter. Medications: Reviewed: Yes Medication Review Details: Active Medications Generic Name Dose Route Start Last Admin Trade Name Freq PRN Reason Stop Dose Admin Acetaminophen 650 mg 08/25/19 20:22 08/25/19 21:50 Tylenol PO 650 mg Q6H PRN Administration MILD PAIN Enoxaparin Sodium 40 mg 08/25/19 20:22 08/25/19 20:45 Lovenox SUBCUT 40 mg Q24H BHANU Administration Folic Acid 1 mg 08/26/19 09:00 08/26/19 08:07 Folic Acid PO 1 mg DAILY BHANU Administration Potassium Chloride /Sodium Chloride 20 meq in 1,000 m ls @ 100 mls/hr 08/25/19 20:22 08/26/19 06:26 Sodium Chlor 0.9 % + Kcl 20 Meq IV 100 mls/hr .Q10H BHANU Administration Lorazepam 2 mg 08/25/19 20:22 Ativan IM Q4H PRN ALCOWD Protocol Lorazepam 2 mg 08/25/19 20:22 08/26/19 05:57 Ativan IVP 2 mg PRN PRN Administration WITHDRAWAL Protocol Lorazepam 2 mg 08/25/19 20:22 Ativan PO Q4H PRN WITHDRAWAL Protocol Multivitamins Ther apeutic 1 tab 08/26/19 09:00 08/26/19 08:07 Multivitamin Tab PO 1 tab DAILY BHANU Administration Nicotine 1 patch 08/26/19 09:00 08/26/19 08:07 Nicoderm 21 Mg P atch TRANSDERMA 1 patch DAILY BHANU Administration Ondansetron HCl 4 mg 08/25/19 20:22 Zofran IVP Q6H PRN NAUSEA AND VOMITI NG Pantoprazole Sodiu m 40 mg 08/26/19 09:00 08/26/19 08:07 Protonix PO 40 mg DAILY BHANU Administration Thiamine Mononitra te 100 mg 08/26/19 09:00 08/26/19 08:07 Vitamin B-1 PO 100 mg DAILY BHANU Administration No Known Allergies Allergy (Verified 07/25/19 08:09) Vitals/I&O/Wt Last Vital Signs Temp 97.6 F 08/26/19 04:00 Pulse 92 08/26/19 07:15 Resp 18 08/26/19 07:15 BP 138/93 08/26/19 07:15 Pulse Ox 92 08/26/19 06:20 08/25/19 08/26/19 08/26/19 22:59 06:59 14:59 Intake Total 1300 / 1300 968.333 / 2268.333 150 / 150 Output Total 200 / 200 200 / 400 Balance 1100 / 1100 768.333 / 1868.333 150 / 150 Weight last 48 hrs Weight 70.76 kg Weight 68.039 kg Physical Exam Const: COMMON NORMALS: no acute distress, patient oriented x3 and alert GENERAL APPEARANCE: cooperative and comfortable ORIENTATION/CONSCIOUSNESS: Yes awake HENMT: COMMON NORMALS: normocephalic, atraumatic, hearing grossly normal bilaterally and moist oral mucous membranes HEAD & SCALP: normocephalic and atraumatic MOUTH: moist mucous membranes abnormal Details: parched and malodorous breath Eye: COMMON NORMALS: Equal, round and reactive pupils present, EOMs intact bilaterally and conjunctivae normal CONJUNCTIVA: Yes conjunctivae normal PUPIL: Yes Equal, round and reactive pupils present Neck/C-Spine: COMMON NORMALS: full ROM GENERAL: Yes normal visual inspection and Yes trachea midline Resp: COMMON NORMALS: normal respiratory effort, No retractions, No use of accessory muscles and clear to auscultation bilaterally EFFORT & INSPECTION: Yes able to speak in complete sentences, Yes symmetric chest movement and No tachypneic AUSCULTATION: clear to auscultation bilaterally Cardio: COMMON NORMALS: regular rate, regular rhythm, S1 normal heart sound present, S2 normal heart sound present and No murmurs present (Cardio) RATE: regular rate RHYTHM: regular rhythm HEART SOUNDS: S1 normal heart sound present and S2 normal heart sound present GI: COMMON NORMALS: Normal to inspection, nondistended, normoactive bowel sounds present, Soft to palpation and non-tender PALPATION: Yes Soft to palpation Extremity: COMMON NORMALS: normal to inspection, full ROM and no clubbing, cyanosis or edema; negative for no pedal edema Neuro: COMMON NORMALS: patient oriented x3, moves all extremities, no focal motor deficits, no sensory deficits noted and gait normal SENSORIUM/ORIENTATION: Yes alert Psych: COMMON NORMALS: mental status grossly normal, Normal thought process present, cooperative, normal affect and speech normal SPEECH: Yes normal speech THOUGHT PROCESS: Normal thought process present Skin: COMMON NORMALS: no rashes or lesions noted, no jaundice, no petechiae and no mottling GENERAL SKIN EXAM: no rashes or lesions noted Data : 08/26/19 04:15 08/26/19 04:15 A&P Assessment and plan (1) Alcohol abuse: -acute alcohol intoxication with EtOH level of 384 -heavy vodka drinker; 1 gallon/day -high risk for severe withdrawal -CIWA protocol; MVI, thiamine, folic acid daily -hold Librium due to transaminitis -close monitoring of vital signs; noted some hypertension and tachycardia in ED; VSS -trend LFTs; improving -fall/seizure/aspiration precautions -IVF hydration; wean off with improved oral intake -may consider librium once LFTs normalized Status: Chronic (2) Transaminitis: -likely secondary to alcohol abuse -trend LFTs; improving -had recent CT A/P showing fatty liver infiltration Status: Acute (3) Cigarette smoker two packs a day or less: -chronic heavy smoker, 2 PPD -nicotine replacement therapy Status: Chronic (4) Tetrahydrocannabinol (THC) use disorder, mild, abuse: Status: Chronic (5) Suicidal ideation: -currently denying SI -sitter at bedside -will likely need Psych evaluation once medically stable; case discussed with Dr. Knowles, patient does not require inpatient psychiatric care Status: Acute Additional A&P Information -regular diet as tolerated -GI ppx with PPI -DVT ppx with Lovenox -Dispo: home -Code status: FULL code -ICU admission due to high risk for severe alcohol withdrawal Attestations Medical Necessity Statement*: Discharge home this afternoon Time Spent in Patient Care: 16 - 35 minutes (>than 50% of time spent in counselling and/or direct pt care on unit). Coding Level of Care Code Acute Nickel Operator for g Fwd Exam Comprehensive Diagnoses Alcohol abuse F10.10 Transaminitis R74.0 Cigarette smoker two packs a day or less F17.210 Tetrahydrocannabinol (THC) use disorder, mild, abuse F12.10 Suicidal ideation R45.857
--- NOTE | 2019-08-26 11:04 | P.CONIM_ITS ---
Providers/Reason for Consult Consulting Physican/Specialty*: Robi Knowles MD. Psychiatry. Reason for Consult*: Evaluation for need of continued psychiatric care/lethality. Attending Physician: Dyan Barnett MD Psych Consult HPI History of Present Illness Luis Andrew is a 38 year old male who Patient presented to the emergency room yesterday, reporting increased drinking, suicidal thoughts, and depression. He had also been seen 07-25-19 for withdrawal and sequela of alcohol use disorder. He was discharged to home after that presentation. He presents this time also endorsing depression and suicidality, and so a psychiatric consult was initiated. Patient presents today reporting that he was feeling despondent related to his being fed up with his alcohol use. He reports that he has had drinking issues for some time, as well as marijuana use. His blood alcohol level, when he was first tested on this visit, was 384. He has been positive for marijuana both times that he has presented. He reports that they have had a lot of conflicts related to his drinking, and that she has said many times that she is fed up, but this is the first rime, recently, that she has made an act of furtherance, to say that if it does not change she is not going to deal with. He reports he did not deal with that well, and that is where the suicidal thinking came from. However, with his mom at the bedside for validation of the accuracy of his statements, he reported that he has talked to his and they have agreed that, if he does what he needs to do, she is still willing to figure this out, but she can not deal with his level of use anymore. He reports that he has had some depression and anxiety in his past, but never to a level that needs treatment. He reports that he is trying to figure out how to get back on track, because when he drinks like this work is not something he does, and it starts a vicious cycle. Mom reported support for him being discharged and them working with him, but was also very clear with him that they were not going to support his behavior anymore. PSYCHIATRIC HISTORY: As above. No psychiatric inpatient visits. SUBSTANCE ABUSE HISTORY: As above. He denies significant use of other illicit drugs, in his life, and none recently. But he reports he has used different drugs. He is currently open to exploring outpatient services with his family, and he denies any interest, need, or desire for inpatient services, at this time. FAMILY HISTORY: They endorse some addiction history within the family. There was alcohol addiction with his father. There were no mental health issues reported and no suicide attempts or completions reported. DEVELOPMENTAL HISTORY: The patient denies any issues with mother?s or delivery of him. The patient met all developmental milestones on time. He denies speech therapy, learning support, emotional support, or special education classes. PSYCHOSOCIAL HISTORY: He reports that he is . He denies working recently secondary to his alcohol use. He reports that he has never been in the . He reports some belief in God. He currently has a place to live and house with his family. LEGAL HISTORY: He endorses previous long-term time, but no current legal issues were reported. MEDICAL HISTORY: Only significant for a cyst on the eye lid in childhood. PFS NPU PFSH: Medical History (Updated 09/10/19 @ 06:21 by Robi Knowles MD) Alcohol abuse -acute alcohol intoxication with EtOH level of 384 -heavy vodka drinker; 1 gallon/day -high risk for severe withdrawal -CIWA protocol; MVI, thiamine, folic acid daily -hold Librium due to transaminitis -close monitoring of vital signs; noted some hypertension and tachycardia in ED; VSS -trend LFTs; improving -fall/seizure/aspiration precautions -IVF hydration; wean off with improved oral intake -may consider librium once LFTs normalized Cigarette smoker two packs a day or less -chronic heavy smoker, 2 PPD -nicotine replacement therapy Cyst of eyelid -s/p excision in childhood Tetrahydrocannabinol (THC) use disorder, mild, abuse Transaminitis -likely secondary to alcohol abuse -trend LFTs; improving -had recent CT A/P showing fatty liver infiltration Family History Father Cancer prostate Alcohol abuse Social History (Updated 08/25/19 @ 19:10 by Dyan Barnett MD) Smoking and tobacco status: current every day smoker cigarettes Packs smoked per day: 2 Years cigarettes smoked: 25 Alcohol intake: current Alcohol intake frequency: 3 or more drinks per day Alcohol type: hard liquor Alcohol use comment: heavy vodka use, 1 gallon/day Desire information about alcohol rehabilitation?: Yes Counseling given: Yes Type of substance drug use counseling provided: provider counseling Household members: spouse Marital status: Mental Status Exam MSE Comments: This is a well-nourished, well-developed, white male, with a hospital gown on, with adequate grooming and eye contact. No abnormal movements, except for mild psychomotor retardation. Cooperative with exam in mild to moderate distress. Speech was normal rate and volume. Mood described as a little down; affect congruent and tearful at times. Thought process, organized. Thought content: patient denied any suicidal or homicidal ideation, there were no delusions reported or noted, patient denied any auditory or visual hallucinations. Attention, concentration, and memory appeared intact but none were formally tested. He is alert and oriented times three. Insight and judgment are fair and improving. Impulse control is limited and improving. Vitals/I&O/Wt Last Vital Signs Temp 98.6 F 08/26/19 18:00 Pulse 82 08/26/19 18:21 Resp 16 08/26/19 18:21 BP 132/95 08/26/19 18:21 Pulse Ox 95 08/26/19 16:00 08/26/19 08/27/19 08/27/19 22:59 06:59 14:59 Intake Total 1081.667 / 1551.667 Balance 1081.667 / 1351.667 Weight last 48 hrs Weight 70.76 kg Weight 68.039 kg A&P Assessment and plan (1) Alcohol use disorder: Status: Acute (2) Adjustment disorder: Status: Acute Additional A&P Information This is a 38 year old, white male, with adjustment disorder with mixed disturbance of emotion and conduct, alcohol use disorder, severe, and cannabis abuse, who presents reporting that he is able to contract for safety and is open to working with his family for outpatient treatment. Continue current medications. Agree with discharge to home, with follow up to be initiated by family. No need for inpatient psychiatric services, although inpatient addiction/sober living services would be beneficial, but the patient is not currently open to inpatient services. Attestations NPU Medical Necessity Statement*: N/A. Please refer to primary provider notes for medical necessity, however, there is no current need for inpatient psychiatric services, and would recommend inpatient sober living services, or sober living services to whatever level the patient is willing to commit. Coding Level of Care Code Acute Cooling Machine Operator for Chg Fwd Diagnoses Alcohol use disorder Adjustment disorder F43.20
--- NOTE | 2019-08-26 18:00 | PM.DCS ---
Discharge Providers Date of Admission: 08/25/19 17:16 Date of Discharge: August 26, 2019 Attending Provider at Admission: Dyan Barnett MD Attending Provider at Discharge: Dyan Barnett MD Consults: Psychiatry: Dr. Knowles Primary Care Provider: None Diagnoses at Discharge Discharge Diagnosis (1) Alcohol abuse: Status: Chronic Problem details: -acute alcohol intoxication with EtOH level of 384 -heavy vodka drinker; 1 gallon/day -high risk for severe withdrawal -CIWA protocol; MVI, thiamine, folic acid daily -hold Librium due to transaminitis -close monitoring of vital signs; noted some hypertension and tachycardia in ED; VSS -trend LFTs; improving -fall/seizure/aspiration precautions -IVF hydration; wean off with improved oral intake -may consider librium once LFTs normalized (2) Transaminitis: Status: Acute Problem details: -likely secondary to alcohol abuse -trend LFTs; improving -had recent CT A/P showing fatty liver infiltration (3) Cigarette smoker two packs a day or less: Status: Chronic Problem details: -chronic heavy smoker, 2 PPD -nicotine replacement therapy (4) Tetrahydrocannabinol (THC) use disorder, mild, abuse: Status: Chronic (5) Suicidal ideation: Status: Acute Problem details: -currently denying SI -sitter at bedside -will likely need Psych evaluation once medically stable; case discussed with Dr. Knowles, patient does not require inpatient psychiatric care Reason for Visit Reason for Visit: stated needs help Hospital Course Hospital Course: Patient was admitted to ICU with one-on-one monitoring secondary to noted acute alcohol intoxication and concern for likelihood of severe alcohol withdrawal. He was covered with CIWA protocol and due to LFT elevation did not receive Librium. He was also started on multivitamins, thiamine and folic acid replacement. Due to initial report of suicidal ideation I discussed the case with psychiatry and per Dr. Knowles patient does not require inpatient care and can be discharged home. Seems that patient has been able to get in touch with his and would like to go home today. He has not required Ativan since 0600, has tolerated oral intake without difficulty, has remained hemodynamically stable and has not required supplemental oxygen support. He has been voiding independently without difficulty and is ambulatory. Alcohol, THC and smoking cessation is strongly recommended. Patient has expressed interest in discontinuation of alcohol specifically and is encouraged to seek appropriate rehab resources. Physical Exam Const: COMMON NORMALS: no acute distress, patient oriented x3 and alert GENERAL APPEARANCE: cooperative and comfortable ORIENTATION/CONSCIOUSNESS: Yes awake HENMT: COMMON NORMALS: normocephalic, atraumatic, hearing grossly normal bilaterally and moist oral mucous membranes HEAD & SCALP: normocephalic and atraumatic MOUTH: moist mucous membranes abnormal Details: parched and malodorous breath Eye: COMMON NORMALS: Equal, round and reactive pupils present, EOMs intact bilaterally and conjunctivae normal CONJUNCTIVA: Yes conjunctivae normal PUPIL: Yes Equal, round and reactive pupils present Neck/C-Spine: COMMON NORMALS: full ROM GENERAL: Yes normal visual inspection and Yes trachea midline Resp: COMMON NORMALS: normal respiratory effort, No retractions, No use of accessory muscles and clear to auscultation bilaterally EFFORT & INSPECTION: Yes able to speak in complete sentences, Yes symmetric chest movement and No tachypneic AUSCULTATION: clear to auscultation bilaterally Cardio: COMMON NORMALS: regular rate, regular rhythm, S1 normal heart sound present, S2 normal heart sound present and No murmurs present (Cardio) RATE: regular rate RHYTHM: regular rhythm HEART SOUNDS: S1 normal heart sound present and S2 normal heart sound present GI: COMMON NORMALS: Normal to inspection, nondistended, normoactive bowel sounds present, Soft to palpation and non-tender PALPATION: Yes Soft to palpation Extremity: COMMON NORMALS: normal to inspection, full ROM and no clubbing, cyanosis or edema; negative for no pedal edema Neuro: COMMON NORMALS: patient oriented x3, moves all extremities, no focal motor deficits, no sensory deficits noted and gait normal SENSORIUM/ORIENTATION: Yes alert Psych: COMMON NORMALS: mental status grossly normal, Normal thought process present, cooperative, normal affect and speech normal SPEECH: Yes normal speech THOUGHT PROCESS: Normal thought process present Skin: COMMON NORMALS: no rashes or lesions noted, no jaundice, no petechiae and no mottling GENERAL SKIN EXAM: no rashes or lesions noted Discharge Data Data Completed and Pending: Completed Studies During Hospitalization Category Date Time Status CT head wo con* 7 0450 Urgent Cat Scan 08/25/19 15:39 Completed Labs from last 24 hours 08/26/19 08/26/19 04:15 04:15 WBC 5.1 RBC 4.18 Hgb 13.9 Hct 39.9 L MCV 95.5 H MCH 33.3 MCHC 34.8 RDW 12.4 Plt Count 167 MPV 10.1 Neut % (Auto) 41.5 Lymph % (Auto) 39.4 [place] % (Auto) 14.8 Eos % (Auto) 3.1 Baso % (Auto) 1.0 Neut # (Auto) 2.11 Lymph # (Auto) 2.0 [place] # (Auto) 0.8 Eos # (Auto) 0.2 Baso # (Auto) 0.1 Nucleated RBC % (a uto) 0 Nucleated RBCs # 0.0 Sodium 139 Potassium 4.3 Chloride 104 Carbon Dioxide 22 Anion Gap 17.3 BUN 7 Creatinine 0.6 L GFR Calculation 150.0 H Glucose 95 Calculated Osmolal ity 284 L Calcium 8.7 Total Bilirubin 0.8 AST 137 H ALT 196 H Alkaline Phosphata se 57 Total Protein 6.7 Albumin 4.2 Globulin 2.5 Vitals: Last Vital Signs Temp 97.8 F 08/26/19 14:00 Pulse 82 08/26/19 16:00 Resp 16 08/26/19 16:00 BP 132/95 08/26/19 16:00 Pulse Ox 96 08/26/19 12:00 Discharge Plan Discharge Patient Disposition: Home, Self-Care Condition: Stable Prescriptions: Continued ondansetron 4 mg tablet,disintegrating 4 mg PO Q6H PRN (Reason: nausea and vomiting) Qty: 10 RF: 1 Discharge Orders: Discharge Order (Routine); Ordered 08/26/19 Ordered By: Dyan Barnett Discharge Diet: Regular Discharge Activity: Increase activity as tolerated Activity Restrictions/Additional Instructions: -Alcohol and tobacco cessation is strongly recommended Discharge Attestations Time Spent in Discharge Care*: greater than 30 min Specific Discharge Activities: Specific discharge activities: educating patient, documenting/other paperwork and evaluating patient/reviewing data Time Spent in Smoking Cessation: Time spent discussing smoking cessation with patient: 3 to 10 minutes Status at Discharge: Cognitive status at discharge: cognitively intact, Behavioral status at discharge: cooperative, Functional status at discharge: independent ambulation Overall status at discharge: patient is back to baseline Quality Metrics Clinical Quality Measures During this hospital stay, did patient experience: None Coding Level of Care Code Acute Street Department Dispatcher for Chg Fwd Diagnoses Alcohol abuse F10.10 Transaminitis R74.0 Cigarette smoker two packs a day or less F17.210 Tetrahydrocannabinol (THC) use disorder, mild, abuse F12.10 Suicidal ideation R45.85
--- NOTE | 2019-08-27 13:00 | PC.RESP ---
Smoking Cessation information sent to patient.
== END 2019-08-26 18:23 | disposition home or self-care (01) | DRG 897 ==
LOC: ER 14:11 → ICU 17:32
PROVIDERS: Emergency Medicine; Admitting Provider Family Medicine; Visit Provider Family Medicine
DX: F10.229 Alcohol dependence with intoxication, unspecified (principal); R45.851 Suicidal ideations; F10.239 Alcohol dependence with withdrawal, unspecified; Y90.8 Blood alcohol level of 240 mg/100 ml or more; F17.210 Nicotine dependence, cigarettes, uncomplicated; F12.10 Cannabis abuse, uncomplicated
CPT/HCPCS: 12345; 36415; 70450; 80053; 80306; 80307; 81001; 81003; 84443; 85025; 96372; 96375; 99285; J1650; J2060; J3411; J7030